=== PATIENT | male | born 1975 | race Caucasian/White ===

== ENCOUNTER → 2019-01-20 10:52 | Outpatient (CLI) | payer OTHER, SELFPAY ==
[2019-01-20 11:02] LABS: Bacteria 0 SEEN /hpf (None Seen); Mucous, Urine 0 SEEN /hpf (<or=2+); Red Blood Cells-Urine 0 SEEN /hpf (0-5); Squamous Epithelial Cells - UA 0 SEEN /hpf (0-5); White Blood Cells 0 SEEN /hpf (0-5)
[2019-01-20 12:35] LABS: Color, Urine Yellow (Yellow); Glucose, Dipstick Normal (Normal); Ketone-Dipstick Negative (Negative); Leukocyte Esterase-Dipstick Negative /ul (Negative); Nitrite-Dipstick Negative (Negative); Occult Blood-Urine Negative /ul (Negative); Protein-Dipstick Negative (Negative); Urine Bilirubin Dipstick Negative (Negative); Urine Clarity Clear (Clear); Urine Urobilinogen Normal (Normal)
[2019-01-20 12:39] LABS: Absolute Lymphocyte Count 2.02 X10^3/ul (0.83-4.51); Absolute Neutrophil Count 3.8 X10^3/uL (2.0-7.7); Basophil# 0.07 X10^3/uL; Basophil% 1.1 % (0-1); Eosinophil# 0.14 X10^3/uL; Eosinophils% 2.1 % (0-5); Hematocrit 47.1 % (40-54); Hemoglobin 16.7 g/dl (13.0-16.5); Lymphocyte # 2.02 X10^3/ul (4.0); Lymphocyte % 30.8 % (19-41); Mean Corp Hgb Conc 35.5 g/gl (32-36); Mean Corpuscular Hgb 30.2 pg (27.0-32.0); Mean Corpuscular Volume 85.2 fL (80-94); Mean Platelet Vol. 9.5 fl (6.2-12.0); Monocyte# 0.56 X10^3/uL; Monocyte% 8.5 % (0-10); Neutrophil # 3.75 X10^3/uL (2.7-7.7); Neutrophil % 57.3 % (47-70); Platelet Count 333 K/mm3 (150-450); RBC Distribution Width CV 12.6 % (11.6-14.6); RBC Distribution Width SD 38.9 fl (35.1-43.9); Red Blood Count 5.53 M/mm3 (4.6-6.2); White Blood Count 6.6 K/mm3 (4.4-11.0)
[2019-01-20 12:48] LABS: POSITIVE COUNT NO; POSITIVE DIFFERENTIAL NO; POSITIVE MORPHOLOGY NO
[2019-01-20 13:25] LABS: ALB/GLOB Ratio 1.1 RATIO (0.9-2.4); AST(SGOT) 25 U/L (15-37); Alanine Aminotransfer ALT/SGPT 42 U/L (16-61); Albumin, Serum 3.8 g/dL (3.2-5.0); Alkaline Phosphatase 73 U/L (45-117); Anion Gap 12 (5-15); BUN 19 mg/dL (7-18); BUN/Creat Ratio 18.3 RATIO (10-20); Calcium,Total 8.7 mg/dL (8.5-10.1); Chloride 105 mmol/L (98-107); Cholesterol 260 mg/dL (200); Creatinine, Serum 1.04 mg/dL (0.70-1.30); EST Glomerular Filtration Rate 84 mL/min (>60); Est Glom Filt Rate - Afr Amer 101 mL/min (>60); Globulin 3.4 g/dL (2.2-4.2); Glucose 86 mg/dL (74-106); High Density Lipoprotein 42 mg/dL; Potassium 4.4 mmol/L (3.5-5.1); Protein, Total 7.2 g/dL (6.4-8.2); Sodium Level 140 mmol/L (136-145); Thyroid Stim Hormone (TSH) 2.34 uIU/mL (0.358-3.74); Triglycerides 128 mg/dL; Very Low Density Lipoprotein 26 mg/dL (5-40)
== END ==
DX: Z00.00 Encounter for general adult medical examination without abnormal findings (principal); E78.49 Other hyperlipidemia; R53.83 Other fatigue
CPT/HCPCS: 36415; 80053; 80061; 81001; 84443; 85025

== ENCOUNTER → 2019-05-14 12:06 | Outpatient (CLI) | payer OTHER, SELFPAY ==
[2019-05-14 14:21] LABS: ALB/GLOB Ratio 1.2 RATIO (0.9-2.4); AST(SGOT) 28 U/L (15-37); Alanine Aminotransfer ALT/SGPT 51 U/L (16-61); Albumin, Serum 4.2 g/dL (3.2-5.0); Alkaline Phosphatase 77 U/L (45-117); Anion Gap 9 (5-15); BUN 15 mg/dL (7-18); BUN/Creat Ratio 13.8 RATIO (10-20); Calcium,Total 8.8 mg/dL (8.5-10.1); Chloride 105 mmol/L (98-107); Cholesterol 175 mg/dL (200); Creatinine, Serum 1.09 mg/dL (0.70-1.30); EST Glomerular Filtration Rate 79 mL/min (>60); Est Glom Filt Rate - Afr Amer 96 mL/min (>60); Globulin 3.5 g/dL (2.2-4.2); Glucose 89 mg/dL (74-106); High Density Lipoprotein 45 mg/dL; Potassium 4.3 mmol/L (3.5-5.1); Protein, Total 7.7 g/dL (6.4-8.2); Sodium Level 140 mmol/L (136-145); Triglycerides 140 mg/dL; Very Low Density Lipoprotein 28 mg/dL (5-40)
== END ==
DX: E78.49 Other hyperlipidemia (principal)
CPT/HCPCS: 36415; 80053; 80061

== ENCOUNTER 2020-08-25 09:00 | Outpatient (RCR) | payer SELFPAY | END 2020-08-25 23:59 | LOC: IMMUN 09:00 | PROVIDERS: Visit Provider Family Medicine | DX: Z23 Encounter for immunization (principal) | CPT/HCPCS: 0011A; 0012A ==

== ENCOUNTER → 2020-11-12 | Outpatient (CLI) | payer OTHER, SELFPAY ==
[2020-11-12 17:49] LABS: Hematocrit 50.5 % (40-54); Hemoglobin 16.2 g/dL (13.0-16.5); Mean Corp Hgb Conc 32.1 g/dL (32-36); Mean Corpuscular Hgb 29.7 pg (27.0-32.0); Mean Corpuscular Volume 92.5 fL (80-94); Mean Platelet Vol. 9.4 fl (6.2-12.0); Platelet Count 312 K/mm3 (150-450); RBC Distribution Width CV 12.7 % (11.6-14.6); RBC Distribution Width SD 43.2 fl (35.1-43.9); Red Blood Count 5.46 M/mm3 (4.6-6.2)
[2020-11-12 18:27] LABS: ALB/GLOB Ratio 1.3 RATIO (0.9-2.4); AST(SGOT) 25 U/L (15-37); Alanine Aminotransfer ALT/SGPT 41 U/L (16-61); Alkaline Phosphatase 83 U/L (45-117); Anion Gap 9 (5-15); BUN 18 mg/dL (7-18); BUN/Creat Ratio 14.5 RATIO (10-20); Calcium,Total 8.9 mg/dL (8.5-10.1); Chloride 103 mmol/L (98-107); Cholesterol 155 mg/dL (200); Creatinine, Serum 1.24 mg/dL (0.70-1.30); EST Glomerular Filtration Rate 68 mL/min (>60); Est Glom Filt Rate - Afr Amer 82 mL/min (>60); Glucose 86 mg/dL (74-106); High Density Lipoprotein 40 mg/dL; Potassium 4.6 mmol/L (3.5-5.1); Sodium Level 136 mmol/L (136-145); Thyroid Stim Hormone (TSH) 2.32 uIU/mL (0.358-3.74); Triglycerides 161 mg/dL; Very Low Density Lipoprotein 32 mg/dL (5-40)
== END | disposition home or self-care (01) ==
PROVIDERS: Referring Provider Family Medicine; Visit Provider Family Medicine
DX: Z00.00 Encounter for general adult medical examination without abnormal findings (principal); E78.49 Other hyperlipidemia
CPT/HCPCS: 36415; 80053; 80061; 84443; 85027

== ENCOUNTER → 2021-05-11 | Outpatient (CLI) | payer OTHER, SELFPAY | END | disposition home or self-care (01) | LOC: LABSPEC 13:33 | PROVIDERS: PCP Family Medicine; Referring Provider Family Medicine; Visit Provider Family Medicine | DX: Z20.822 Contact with and (suspected) exposure to COVID-19 (principal) | CPT/HCPCS: 87635; U0005; U0003 ==

== ENCOUNTER → 2021-06-28 08:18 | Outpatient (CLI) | payer OTHER, SELFPAY ==
[2021-06-28 10:12] LABS: AST(SGOT) 30 U/L (15-37); Alanine Aminotransfer ALT/SGPT 43 U/L (16-61); Albumin, Serum 3.7 g/dL (3.2-5.0); Alkaline Phosphatase 86 U/L (45-117); Anion Gap 6 (5-15); BUN 18 mg/dL (7-18); BUN/Creat Ratio 15.4 RATIO (10-20); Calcium,Total 8.6 mg/dL (8.5-10.1); Chloride 104 mmol/L (98-107); Creatinine, Serum 1.17 mg/dL (0.70-1.30); EST Glomerular Filtration Rate 72 mL/min (>60); Est Glom Filt Rate - Afr Amer 87 mL/min (>60); Globulin 3.7 g/dL (2.2-4.2); Glucose 98 mg/dL (74-106); Lipase 111 U/L (73-393); Potassium 3.9 mmol/L (3.5-5.1); Protein, Total 7.4 g/dL (6.4-8.2); Sodium Level 135 mmol/L (136-145)
[2021-06-29 08:43] LABS: Hematocrit 46.5 % (40-54); Hemoglobin 16.1 g/dL (13.0-16.5); Mean Corp Hgb Conc 34.6 g/dL (32-36); Mean Corpuscular Hgb 30.6 pg (27.0-32.0); Mean Corpuscular Volume 88.4 fL (80-94); Mean Platelet Vol. 9.8 fl (6.2-12.0); Platelet Count 281 K/mm3 (150-450); RBC Distribution Width CV 12.3 % (11.6-14.6); RBC Distribution Width SD 40.1 fl (35.1-43.9); Red Blood Count 5.26 M/mm3 (4.6-6.2); White Blood Count 5.9 K/mm3 (4.4-11.0)
[2021-06-29 08:48] LABS: Cholesterol 155 mg/dL (200); High Density Lipoprotein 42 mg/dL; Triglycerides 117 mg/dL; Very Low Density Lipoprotein 23 mg/dL (5-40)
== END ==
PROVIDERS: PCP Physician Assistant; Referring Provider Physician Assistant; Visit Provider Physician Assistant
DX: Z00.00 Encounter for general adult medical examination without abnormal findings (principal); R53.83 Other fatigue; E55.9 Vitamin D deficiency, unspecified; K21.9 Gastro-esophageal reflux disease without esophagitis; R10.9 Unspecified abdominal pain
CPT/HCPCS: 36415; 80053; 80061; 82306; 83690; 84443; 85027

== ENCOUNTER 2021-07-04 05:33 | Day surgery (SDC) | payer OTHER, SELFPAY ==
[2021-07-04] VITALS (9 sets, daily range): BP systolic 102–134; BP diastolic 57–78; PULSE 66–75; RESP 16–18; TEMP 36.4–36.9; O2SAT 94–100; BMI 35.9
--- NOTE | 2021-07-04 | EGD_PTH ---
PATIENT: AUDELIA ANGEL LOC: EN U#:[id number] AGE/SX: 45/M ROOM: RE07/04/[address]: Dr. Herbert Chun MD : 1975 BED: DIS: 07/04/2021 SPEC #: [id number] RECD: 07/04/21 10:38 STATUS: LOS NELSON #: [id number] DHRUV: 07/04/21 00:[address]: Herbert Chun DEPT: SURGICAL PATHOLOGY RECD BY: Fuad Stockton ENTERED: 07/04/21 10:38 SP TYPE: EGD BIOPSY OT DR: Radha Delgado PA-C Tissues: A - Duodenum, NOS B - Gastric mucous membrane C - Esophageal mucous membrane D - Esophageal mucous membrane Procedures: Special Stain Group II Surgery Specimen Level IV Alcian Blue/PAS (control) HEADER OPERATION: EGD PRE-OP DIAGNOSIS: Acid reflux, epigastric abdominal pain TISSUE SUBMITTED: A. Duodenum biopsy, B. Antrum biopsy for H. pylori and path, C. Distal esophagus biopsy, D. Mid esophagus biopsy MICROSCOPIC DIAGNOSIS A. Duodenum, biopsy: A fragment of duodenal mucosa, no pathologic diagnosis. B. Antrum, biopsy: Mild gastritis. See microscopic description and comment. C. Distal esophagus, biopsy: Fragments of gastroesophageal mucosa with moderate chronic inflammation. Intestinal metaplasia (goblet cell metaplasia) not identified. See comment. D. Mid esophagus, biopsy: A fragment of squamous epithelium, no pathologic diagnosis. SJ:elfego 07/05/2021 COMMENT B. The results of immunohistochemistry for Helicobacter pylori will be reported separately ([id number]). C. Alcian blue/PAS stain with matched control is used in the evaluation of the specimen. MICROSCOPIC DESCRIPTION Slides are reviewed. B. The specimen shows fragments of gastric mucosa with chronic inflammatory cell infiltrates in the lamina propria consisting of lymphocytes and plasma cells, consistent with mild chronic gastritis. Mild mucosal congestion is also noted. GROSS DESCRIPTION A - Received in fixative is one container labeled with the patient's name and designated duodenum biopsy. The specimen consists of one irregular fragment of light becerra soft tissue that measures 0.3 x 0.3 x 0.1 cm. The specimen is totally submitted in one cassette. B - Received in fixative is one container labeled with the patient's name and designated antrum biopsy. The specimen consists of one irregular fragment of light becerra soft tissue that measures 0.3 x 0.3 x 0.1 cm. The specimen is totally submitted in one cassette. C - Received in fixative is one container labeled with the patient's name and designated distal esophagus biopsy. The specimen consists of multiple irregular fragments of light becerra soft tissue that in aggregate measure 2 x 0.3 x 0.1 cm. The specimen is totally submitted in one cassette. D - Received in fixative is one container labeled with the patient's name and designated mid esophagus biopsy. The specimen consists of one irregular fragment of light becerra soft tissue that measures 0.6 x 0.2 x 0.1 cm. The specimen is totally submitted in one cassette. /SJ:rg 07/04/21 TC:3 CPT: 75624 x4, 10774
--- NOTE | 2021-07-04 | IMM_PTH ---
PATIENT: AUDELIA ANGEL LOC: EN U#:[id number] AGE/SX: 45/M ROOM: RE07/04/[address]: Dr. Herbert Chun MD : 1975 BED: DIS: 07/04/2021 SPEC #: [id number] RECD: 07/04/21 11:51 STATUS: LOS NELSON #: [id number] DHRUV: 07/04/21 00:[address]: Herbert Chun DEPT: IMMUNOHISTOCHEMISTRY RECD BY: Barry Hernandes ENTERED: 07/04/21 11:51 SP TYPE: IMMUNO OTHR DR: Radha Delgado PA-C Tissues: Gastric mucous membrane Procedures: H Pylori (initial) PHYSICIAN & INSTITUTION [place] [id number] SPECIMEN INFORMATION: Tissue Source: B - Antrum biopsy Clinical Info: Acid reflux, epigastric abdominal pain Specimen Number: [id number] CPT code: 93370 METHODOLOGY: Deparaffinized sections of prefer/formalin-fixed tissue or PAP/DQ stained slides are incubated with monoclonal/polyclonal antibodies/oligonucleotide probes. Localization is made via biotin free immunoperoxidase method. Appropriate controls are performed and reacted as expected. Results on target cell population are indicated in the following table: RESULTS: ANTIBODY / CLONE RESULT Block B H Pylori (polyclonal) negative These tests were developed and their performance characteristics determined by [facility]. They may not have been cleared or approved by the U.S. Food and Drug Administration. The FDA has determined that such clearance or approval is not necessary. INTERPRETATION: B. Antrum, biopsy: Negative for Helicobacter pylori organisms. SJ:elfego 07/05/2021
--- NOTE | 2021-07-04 06:03 | HP.PCM_ITS ---
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 Is patient in pain?: No Allergies No Known Allergies Allergy (Unverified 06/27/21 14:56) Medications omeprazole 40 mg capsule,delayed release 40 mg PO DAILY 06/27/21 [History Confirmed 06/27/21] oxygen-air delivery systems #1 06/27/21 [History Confirmed 06/27/21] rosuvastatin 20 mg tablet tablet PO 06/27/21 [History Confirmed 06/27/21] [facility] Medical History Acid reflux High cholesterol Family History Mother CAD (coronary artery disease) Social History Smoking Status: Never smoker alcohol intake: current alcohol intake frequency: a few times a month HPI HPI HPI: AUDELIA ANGEL, is a 45 M who presents to the office today for surgical consultation regarding gastroesophageal reflux disease. The patient is referred by Dr.Nino Gonzales, [place], [place]. Intermittent compromise surgical consult recommendations will return to him. Despite omeprazole therapy the patient is having increased reflux symptomatology. He is currently on omeprazole 40 mg daily. There is some associated epigastric pain as well.. Despite this the patient is complaining of his persistent gnawing pain in the epigastrium. Food may slightly improve it. There is no particular food that aggravates it. He denies bright red blood per rectum or melena. No fever or chills or sweats. He otherwise enjoys good health. He has never had a cardiac stress test however he does routine exercise on the [employer]. In the past he has had problems with more reflux type issues and heartburn. That is a lesser component currently. ROS General General: No weight change, appetite, fatigue, colon cancer, breast cancer or weakness HEENT HEENT: No difficulty swallowing, eye injury, eye surgery, swollen glands or hoarseness Endo Endocrine: No thyroid disease, diabetes mellitus, thyroid cancer, Hair loss, heat intolerance or cold intolerance Skin Skin: No rash or changing moles Breast Breast: No left breast lump, right breast lump, nipple discharge, breast pain, abnormal mammogram, abnormal US or breast enlargement [facility] Musculoskeletal: No back problems, arthritis, rheumatoid arthritis, gout or joint pain Cardio Cardiovascular: No murmur, pacemaker, heart disease, atrial fibrillation, high blood pressure, heart attack, heart stent, palpitations, shortness of breat with exertion or chest pain Psych Psychiatric: No depression, anxiety or hearing voices Resp Respiratory: No shortness of breath, No sleep apnea, No cough, No COPD, No asthma, No emphysema and No wheezing Gastro Gastrointestinal: Yes abdominal pain, No nausea or vomiting, No diarrhea, No constipation, No blood in stool, Yes acid reflux, No hemorrhoids, No ulcers, No gallbladder problem and No black,tarry stools Marco A Hematologic: No blood thinners, No blood disorders, No bleeding, No anemia and No blood clots Neuro Neurologic: No system reviewed and no additional complaints, except as documented, No as per HPI, No abnormal gait, No abnormal hearing, No abnormal movements, No abnormal speech, No behavioral changes, No burning sensations, No confusion, No convulsions, No disequilibrium, No dizziness, No localized weakness, No frequent falls, No headache(s), No lack of coordination, No loss of vision, No memory loss, No numbness, No other visual disturbances, No radicular pain, No restless legs, No sensory deficit, No syncope, No tingling, No tremor(s), No weakness and No other Exam Const General: cooperative, healthy appearing, comfortable and no acute distress Nutritional Appearance: overweight Orientation: alert and awake [facility] Head: normal to inspection Eyes General: appearance normal, both eyes and all related structures Resp Effort & Inspection: normal respiratory effort Auscultation: clear to auscultation bilaterally Cardio Rate: regular rate Rhythm: regular rhythm GI Palpation: soft Other: Slightly tender in the epigastrium without mass or guarding or rebound, nontender in the right upper quadrant except a very deep palpation mild discomfort. [facility] Cervical Spine: normal cervical lordosis Neuro General: patient alert, patient awake and patient oriented x3 Extrem General: no calf tenderness Psych Appearance: grossly normal Assessment and Plan Assessment and Plan (1) Acid reflux: Status: Acute (2) Epigastric abdominal pain: Status: Acute Orders: Orders: Comprehensive Metabolic Profil Today K21.9 Lipase Today K21.9 Plan - Dr. Herbert Chun MD: Epigastric abdominal pain not resolved with omeprazole 40 mg daily. Past history of reflux symptoms but that is a lesser component. Constant gnawing discomfort. No food intolerance. Etiology at this point is not clear. I recommend a complete metabolic profile with a lipase. I recommend a esophagogastroduodenoscopy with very careful inspection and biopsy if indicated. Pending the results of that blood work and investigation if there are no findings that would correlate with the patient's symptomatology then I would recommend a right upper quadrant ultrasound and pending that result a hepatobiliary scan as well. He has had an opportunity to ask and have questions answered. He concurs with th e recommendations would like to proceed as noted. I appreciate the opportunity of assisting with the surgical care. Copy: Dr.Rubino Herbert Chun M.D., F.A.C.S. I have re-examined the patient. There are no clinical changes since date of exam.
[2021-07-04] MEDS: Lactated Ringers 1,000 ML 15 ML IV (06:04)
[2021-07-04] MEDS: Midazolam 5 MG/ML Syringe (06:30)
--- NOTE | 2021-07-04 06:53 | OP.CCLET_ITS ---
07/04/2021 Terrence Sexton Md Re : Upper GI endoscopy procedure for Ramírez Burnham Dear Carlie This procedure was performed on Sunday, July 04, 2021. My impressions and recommendations are as follows: Impressions : - Normal middle third of esophagus. Biopsied. - LA Grade A reflux esophagitis. Rule out Dietrich's esophagus. Biopsied. - 1 cm hiatal hernia. - Erythematous mucosa in the antrum. Biopsied. - Normal examined duodenum. Biopsied. Recommendations : - Discharge patient to home. - Resume previous diet. - Continue present medications. - Telephone my office for pathology results in 1 week. My findings are described in the full procedure note, which is enclosed. If I can be of further assistance, please feel free to contact me at Doctor phone number(s): Work: . Sincerely, Herbert Chun MD 07/04/2021 6:52:22 AM This report has been signed electronically.
--- NOTE | 2021-07-04 06:53 | OP.EGD_ITS ---
Patient Name: Ramírez Burnham Procedure Date: 07/04/2021 6:14 AM Date of : 1975 Age: 45 Procedure: Upper GI endoscopy Indications: Suspected esophageal reflux Providers: Herbert Chun MD Referring MD: ILA Perea Medicines: Midazolam 4 mg IV, Meperidine 100 mg IV Complications: No immediate complications. Procedure: Pre-Anesthesia Assessment: - Prior to the procedure, a History and Physical was performed, and patient medications and allergies were reviewed. The patient's tolerance of previous anesthesia was also reviewed. The risks and benefits of the procedure and the sedation options and risks were discussed with the patient. All questions were answered, and informed consent was obtained. Prior Anticoagulants: The patient has taken no previous anticoagulant or antiplatelet agents. ASA Grade Assessment: II - A patient with mild systemic disease. After reviewing the risks and benefits, the patient was deemed in satisfactory condition to undergo the procedure. After obtaining informed consent, the endoscope was passed under direct vision. Throughout the procedure, the patient's blood pressure, pulse, and oxygen saturations were monitored continuously. The gastroscope was introduced through the mouth, and advanced to the second part of duodenum. The upper GI endoscopy was accomplished without difficulty. The patient tolerated the procedure well. Moderate Sedation: Moderate (conscious) sedation was personally administered by the endoscopist. The following parameters were monitored: oxygen saturation, heart rate, blood pressure, and response to care. Total physician intraservice time was 15 minutes. Scope In: 6:33:54 AM Scope Out: 6:41:34 AM Total Procedure Duration Time 0 hours 7 minutes 40 seconds Findings: The middle third of the esophagus was normal. Biopsies were taken with a cold forceps for histology. LA Grade A (one or more mucosal breaks less than 5 mm, not extending between tops of 2 mucosal folds) esophagitis with no bleeding was found 40 cm from the incisors. Biopsies were taken with a cold forceps for histology. A 1 cm hiatal hernia was present. Diffuse mildly erythematous mucosa without bleeding was found in the gastric antrum. Biopsies were taken with a cold forceps for histology. The examined duodenum was normal. Biopsies were taken with a cold forceps for histology. Impression: - Normal middle third of esophagus. Biopsied. - LA Grade A reflux esophagitis. Rule out Dietrich's esophagus. Biopsied. - 1 cm hiatal hernia. - Erythematous mucosa in the antrum. Biopsied. - Normal examined duodenum. Biopsied. Recommendation: - Discharge patient to home. - Resume previous diet. - Continue present medications. - Telephone my office for pathology results in 1 week. Procedure Code(s): --- Professional --- 61101, Esophagogastroduodenoscopy, flexible, transoral; with biopsy, single or multiple 76773, 59, Moderate sedation services provided by the same physician or other qualified health career guidance technician performing the diagnostic or therapeutic service that the sedation supports, requiring the presence of an independent trained observer to assist in the monitoring of the patient's level of consciousness and physiological status; initial 15 minutes of intraservice time, patient age 5 years or older Diagnosis Code(s): --- Professional --- K21.0, Gastro-esophageal reflux disease with esophagitis K44.9, Diaphragmatic hernia without obstruction or gangrene K31.89, Other diseases of stomach and duodenum CPT copyright 2017 [employer]. All rights reserved. The codes documented in this report are preliminary and upon soil conservation teacher review may be revised to meet current compliance requirements. Herbert Chun MD 07/04/2021 6:52:22 AM This report has been signed electronically. Number of Addenda: 0 Note Initiated On: 07/04/2021 6:14 AM
== END 2021-07-04 08:27 | disposition home or self-care (01) ==
LOC: EN 05:34 → AC 05:35
PROVIDERS: PCP Physician Assistant; Referring Provider Physician Assistant; Visit Provider Surgery
PROC: (CPT 43239; principal; 2021-07-04 06:25)
DX: K29.70 Gastritis, unspecified, without bleeding (principal); K21.00 Gastro-esophageal reflux disease with esophagitis, without bleeding; K44.9 Diaphragmatic hernia without obstruction or gangrene; E78.00 Pure hypercholesterolemia, unspecified; Z79.899 Other long term (current) drug therapy
CPT/HCPCS: 43239; 88305; 88313; 88342; 99152; 99153; J7120

== ENCOUNTER → 2021-07-16 07:41 | Outpatient (CLI) | payer OTHER, SELFPAY ==
--- NOTE | 2021-07-16 07:48 | US_ITS ---
STUDY: ABDOMINAL ULTRASOUND - RIGHT UPPER QUADRANT REASON FOR VISIT: Male, 45 years old, right upper quadrant pain. TECHNIQUE: Ultrasound evaluation of the right upper quadrant was performed with real-time and static swenson-scale imaging. TECHNICAL QUALITY: Adequate. COMPARISON: None. FINDINGS: Liver: The liver measures 18.1 cm. There is increased echogenicity consistent with fatty infiltration. The bile ducts are within normal limits. There is hepatic color flow. The direction of portal flow is hepatopetal. There is no demonstrated mass lesion. Gallbladder: Normal distended gallbladder. The gallbladder wall measures 2.1 mm. There is a negative sonographic Wilson''s sign. There is no pericholecystic fluid. There are no gallstones. Common Bile Duct (C.B.D.): The common bile duct measures 3.1 mm. Pancreas: The pancreas is somewhat echogenic. There is no demonstrated definite pancreatic mass or cyst. Right Kidney: Normal size of the right kidney. The right kidney measures 11.4 cm. Normal renal cortex. The right cortex measures 1.2 cm. There is no demonstrated renal mass or cyst. There is no right hydronephrosis. US/Gallbladder IMPRESSION: 1. Mild hepatomegaly. 2. Increased liver echogenicity which may reflect fatty infiltration. 3. No evidence of gallstones. Electronically Signed: Óscar Hanson, at 9:44 EST Tel , Service support ,
== END ==
PROVIDERS: PCP Family Medicine; Visit Provider Surgery
DX: R10.13 Epigastric pain (principal)
CPT/HCPCS: 76705

== ENCOUNTER → 2021-07-22 09:51 | Outpatient (CLI) | payer OTHER, SELFPAY ==
--- NOTE | 2021-07-22 09:57 | NM_ITS ---
CLINICAL: 45-year-old male with reported history of abdominal pain. RADIONUCLIDE HEPATOBILIARY SCINTIGRAPHY COMPARISON: Abdominal ultrasound report 07/16/2021 FINDINGS: Following the intravenous administration of 4.9 mCi of 99m Tc Mebrofenin, hepatobiliary images reveal: 1. Relatively prompt and homogeneous radiopharmaceutical concentration is noted by a normal sized liver. No parenchymal defects are identified. 2. Gallbladder activity is identified at 10 minutes post radiopharmaceutical administration. 3. Small intestinal tract is observed at 45 minutes following tracer injection. 4. Washout of the radiopharmaceutical by the hepatic parenchyma appears qualitatively normal. The patient was administered a fatty meal (8 ounces BOOST-26 grams fat). The post fatty meal consumption gallbladder ejection fraction calculated at 29 minutes was noted to be 52.0 % (normal greater than 30%). NC/Hepatobilliary Img w/Pharm Int IMPRESSION: 1. NORMAL 99m Tc Mebrofenin hepatobiliary imaging examination with fatty meal ingestion. A. A gallbladder ejection fraction calculated to be greater than 30% following the administration of a consumed fatty meal makes the probability of functional hepatobiliary disease (gallbladder and/or sphincter of Oddi dyskinesia) and/or organic hepatobiliary disease (chronic acalculous cholecystitis and/or cystic duct syndrome) to be low. (Carmen and Arsenio, J Nucl Med 43: 1603, 2002). Electronically Signed: Russ Angel DO at 7:57 EST Tel , Service support ,
== END ==
PROVIDERS: PCP Family Medicine; Referring Provider Surgery; Visit Provider Surgery
DX: R10.13 Epigastric pain (principal)
CPT/HCPCS: 78227; A9537

== ENCOUNTER 2022-05-01 20:04 | Emergency (ER) | payer OTHER, SELFPAY ==
[2022-05-01 20:05] VITALS: BP 152/92; PULSE 102; RESP 20; TEMP 36.9; O2SAT 98; BMI 35.1
--- NOTE | 2022-05-01 20:21 | EKG12_ITS ---
Test Reason : CP Blood Pressure : / mmHG Vent. Rate : 090 BPM Atrial Rate : 090 BPM P-R Int : 138 ms QRS Dur : 100 ms QT Int : 374 ms P-R-T Axes : 060 -36 062 degrees QTc Int : 457 ms Normal sinus rhythm Left axis deviation Low voltage QRS (Limb Leads) Poor R wave progression Abnormal ECG Confirmed by CONSTANTIN MULLINS, GARY ([id number]), scientific editor TROY SHRESTHA ([id number]) on 05/02/2022 1:18:19 PM Referred By: GO Confirmed By:GARY KILLIAN MD
--- NOTE | 2022-05-01 20:22 | ED.VIS.CHEST ---
HPI History of Present Illness Chief Complaint: Chest Pain Narrative Narrative: Patient's was recently diagnosed with COVID, he developed some chest pain retrosternal today. He has no radiation to arms or legs, he has no pleuritic component. No lower extremity edema or calf pain. No recent fevers chills cough or shortness of breath. [facility] Medical History (Updated 05/01/22 @ 22:[address] Pavel Keyes MD) Acid reflux High cholesterol Obstructive sleep apnea Home Medications omeprazole 40 mg capsule,delayed release 40 mg PO DAILY 06/27/21 [History Last Taken Unknown] oxygen-air delivery systems ##1 06/27/21 [History Last Taken Unknown] rosuvastatin 20 mg tablet (Crestor) 1 tablet PO DAILY 06/27/21 [History Last Taken Unknown] Allergy/AdvReac Type Severity Reaction Status Date / Time No Known Allergies Allergy Unverified 05/01/22 20:08 Family History Mother CAD (coronary artery disease) Social History Smoking Status: Never smoker alcohol intake: current alcohol intake frequency: a few times a month ROS ROS ED ROS Narrative Past medical history: Reviewed, hypercholesterolemia. Medications: Reviewed Social history: Noncontributory Review of systems: All systems negative except as indicated General: No fever Eyes: No visual changes ENT: No upper airway congestion, normal voice Neck: No neck pain Cardiovascular: Chest pain as in HPI Respiratory: No shortness of breath or cough Gastrointestinal: No abdominal pain, nausea vomiting or diarrhea Genitourinary: No dysuria Musculoskeletal: Denies myalgias no difficulty with ambulation Skin: No rash Neurological: No memory loss, confusion or any focal weakness Psych: No recent behavioral changes Hematologic: No easy bleeding or easy bruising EXAM Physical Exam Narrative Exam Narrative: Physical exam General: Well nourished, Well developed, No Acute Distress Head: Normocephalic, Atraumatic Eyes: Conjunctiva not pale ENT: Moist mucous membranes Neck: Supple, Nontender, No lymphadenopathy Cardiovascular: Regular rate, Regular rhythm Respiratory: No distress, CTA bilaterally Abdomen: Soft, Nontender, Nondistended Back: Nontender, Normal Inspection. Negative for: CVA tenderness Extremities: Nontender, No edema Skin: Normal color, No rash Neurological: Alert, Normal Strength, Normal Sensation Psychological: Normal affect Const Vital Signs: 05/01/22 20:05 05/01/22 20:21 05/01/22 22:04 Temperature 98.4 F Temperature Source Temporal Pulse Rate 102 H 76 Respiratory Rate 20 H 18 Blood Pressure 152/92 H 128/72 H Blood Pressure Mean 112 90 Pulse Ox 98 97 Oxygen Delivery Method Room Air Room Air Room Air 05/01/22 21:04 Temperature Temperature Source Pulse Rate 68 Respiratory Rate Blood Pressure Blood Pressure Mean Pulse Ox 99 Oxygen Delivery Method [facility] MDM Lab Data Labs: Laboratory Results - last 24 hr 05/01/22 05/01/22 21:06 21:06 WBC 8.6 RBC 5.32 Hgb 16.1 Hct 46.1 MCV 86.7 MCH 30.3 MCHC 34.9 RDW Std Deviation 38.1 RDW Coeff of Rafal 12.0 Plt Count 278 MPV 8.8 Immature Gran % (Auto) 0.400 Neut % (Auto) 83.6 H Lymph % (Auto) 10.7 L [place] % (Auto) 4.9 Eos % (Auto) 0.0 Baso % (Auto) 0.4 Absolute Neuts (auto) 7.2 Absolute Lymphs (auto) 0.92 Nucleated RBC % 0 Sodium 137 Potassium 4.0 Chloride 105 Carbon Dioxide 22.0 Anion Gap 10 BUN 16 Creatinine 1.24 Estim Creat Clear Calc 73.55 Est GFR (MDRD) Af Amer 81 Est GFR (MDRD) Non-Af 67 BUN/Creatinine Ratio 12.9 Glucose 126 H Calcium 8.7 Troponin I High Sens < 3 L Radiography Diagnostic Testing: Clinical Impression(s) from Imaging Studies Chest X-Ray 05/01/22 20:49 IMPRESSION: No radiographic evidence of acute cardiopulmonary disease. Electronically Signed: Pako Lala MD at 22:28 EDT , Chest x-ray read by me is normal. EKG Initial EKG: Comments: Sinus rhythm with a rate of 90. Normal MS and QTc intervals. No ischemic changes. Interpreted by emergency Dr. Treatment and Re-Evaluation Narrative: I am not worried about thromboembolic disease, patient has normal heart rate he has no pleuritic component or lower extremity eczema. He appears well. He is work-up is unremarkable with a normal troponin and has been ruled out. I will discharge with reassurance. Discharge Plan Triage Chief Complaint: Chest Pain ED Provider: Pavel Keyes Dx/Rx/DC Orders Clinical Impression: Chest pain, COVID Instructions: ED Chest Pain, Uncertain Cause Prescriptions: No Action rosuvastatin [Crestor] 20 mg tablet 1 tablet PO DAILY omeprazole 40 mg capsule,delayed release(DR/EC) 40 mg PO DAILY (DME) oxygen-air delivery systems Device See Rx Instructions .ROUTE .MEDSULY Qty: 1 Rx Instructions: As directed Primary Care Provider: Grzegorz Gonzales Referrals: Grzegorz Gonzales MD [Primary Care Provider] - 3-5 Days Disposition Disposition: Home, Self Care
[2022-05-01] MEDS: Aspirin 81 MG TAB.CHEW 324 MG PO (20:34)
--- NOTE | 2022-05-01 20:49 | RAD_ITS ---
INDICATION: chest pain EXAMINATION/TECHNIQUE: X-RAY - XR Chest 1 View COMPARISON: None. FINDINGS: LINES/DEVICES: None. LUNGS: No pulmonary edema or focal airspace consolidation. Left basilar retrocardiac pulmonary vessels, not to be confused with airspace disease. No sizable pleural effusion. No pneumothorax detected. MEDIASTINUM AND CARDIOVASCULAR STRUCTURES: Heart size within normal limits. Mediastinal contours unremarkable. BONES AND SOFT TISSUES: No acute findings. RAD/Chest 1 View (Portable) IMPRESSION: No radiographic evidence of acute cardiopulmonary disease. Electronically Signed: Pako Lala MD at 22:28 EDT ,
[2022-05-01 21:04] VITALS: PULSE 68; O2SAT 99
[2022-05-01 21:13] LABS: Absolute Lymphocyte Count 0.92 X10^3/uL (0.83-4.51); Absolute Neutrophil Count 7.2 X10^3/uL (2.0-7.7); Basophil# 0.03 X10^3/uL; Basophil% 0.4 % (0-1); Hematocrit 46.1 % (40-54); Hemoglobin 16.1 g/dL (13.0-16.5); Lymphocyte # 0.92 X10^3/ul (0.83-4.51); Lymphocyte % 10.7 % (19-41); Mean Corp Hgb Conc 34.9 g/dL (32-36); Mean Corpuscular Hgb 30.3 pg (27.0-32.0); Mean Corpuscular Volume 86.7 fL (80-94); Mean Platelet Vol. 8.8 fl (6.2-12.0); Monocyte# 0.42 X10^3/uL; Monocyte% 4.9 % (0-10); NRBC Flagged by Analyzer 0 % (0-5); Neutrophil # 7.17 X10^3/uL (2.7-7.7); Neutrophil % 83.6 % (47-70); Platelet Count 278 K/mm3 (150-450); RBC Distribution Width SD 38.1 fl (35.1-43.9); Red Blood Count 5.32 M/mm3 (4.6-6.2); White Blood Count 8.6 K/mm3 (4.4-11.0)
[2022-05-01 21:36] LABS: Anion Gap 10 (5-15); BUN 16 mg/dL (7-18); BUN/Creat Ratio 12.9 RATIO (10-20); Calcium,Total 8.7 mg/dL (8.5-10.1); Chloride 105 mmol/L (98-107); Creatinine, Serum 1.24 mg/dL (0.70-1.30); EST Glomerular Filtration Rate 67 mL/min (>60); Est Glom Filt Rate - Afr Amer 81 mL/min (>60); Estimated Creatinine Clearance 73.55 ml/min; Glucose 126 mg/dL (74-106); Sodium Level 137 mmol/L (136-145); Troponin-I HS (w/2H Reflex) < 3 pg/mL (3.0-78.0)
[2022-05-01 22:04] VITALS: BP 128/72; PULSE 76; RESP 18; O2SAT 97
[2022-05-01 23:00] VITALS: BP 117/62; O2SAT 98
[2022-05-01 23:10] LABS: Reflex Troponin-HS? (from REC) Y
[2022-05-01 23:26] LABS: Troponin-I HS < 3 pg/mL (3.0-78.0)
== END 2022-05-01 23:34 | disposition home or self-care (01) ==
PROVIDERS: Emergency Provider Emergency Medicine; PCP Family Medicine; Visit Provider Emergency Medicine
DX: U07.1 COVID-19 (principal); E78.00 Pure hypercholesterolemia, unspecified; K21.9 Gastro-esophageal reflux disease without esophagitis; G47.33 Obstructive sleep apnea (adult) (pediatric)
CPT/HCPCS: 36415; 71045; 80048; 84484; 85025; 93005; 99284; A4216

== ENCOUNTER 2022-05-29 09:39 | Emergency (ER) | payer OTHER, SELFPAY ==
[2022-05-29 09:40] VITALS: BP 131/74; PULSE 130; RESP 14; TEMP 37; O2SAT 95; BMI 34.9
--- NOTE | 2022-05-29 10:00 | EX.ED.GENINJ ---
HPI History of Present Illness Chief Complaint: Laceration Narrative Narrative: 46-year-old male here for finger injury. The patient states he was using a wood heel finisher. He notes he amputated the distal portion of second digit. States he is constant, severe left finger pain that is worse with movement and palpation Old chart reviewed: No recent ED visits or hospitalizations Tetanus Immunization: 5-10 years [facility] Medical History (Updated 05/29/22 @ 11:[address] Alberto Arevalo, DO) Acid reflux Amputated finger High cholesterol Obstructive sleep apnea Home Medications omeprazole 40 mg capsule,delayed release 40 mg PO DAILY 06/27/21 [History Last Taken Unknown] oxygen-air delivery systems ##1 06/27/21 [History Last Taken Unknown] rosuvastatin 20 mg tablet (Crestor) 1 tablet PO DAILY 06/27/21 [History Last Taken Unknown] cephalexin 500 mg capsule 500 mg PO Q6 #40 caps 05/29/22 [Rx Last Taken Unknown] oxycodone 5 mg capsule 5 mg PO Q6H PRN pain 3 days #12 caps 05/29/22 [Rx Last Taken Unknown] Allergy/AdvReac Type Severity Reaction Status Date / Time No Known Allergies Allergy Verified 05/29/22 09:42 Family History Mother CAD (coronary artery disease) Social History Smoking Status: Never smoker alcohol intake: current alcohol intake frequency: a few times a month ROS ROS ED ROS Narrative Constitutional: Denies fever HEENT: Denies sore throat Neck: Denies neck pain Cardiovascular: Denies chest pain, syncope Respiratory: Denies shortness of breath GI: Denies nausea vomiting or abdominal pain : Denies changes in urinary habits Musculoskeletal: Denies muscle or joint pain Neurologic: Denies numbness weakness or loss of sensation Skin denies rash EXAM Physical Exam Narrative Exam Narrative: Nursing triage notes reviewed, Vital signs reviewed Constitutional: please see mdm Extremities: Left second digit with angular amputation of the distal phalanx with nail involvement, bleeding controlled, no obvious exposed bone. Neuro: Intact sensation in radial, median and ulnar nerve distributions. Intact motor function in radial, median ulnar nerve distributions. Skin: Finger amputation as above Const Vital Signs: 05/29/22 09:40 10/24/22 12:11 Temperature 98.6 F Temperature Source Temporal Pulse Rate 130 H 71 Respiratory Rate 14 16 Blood Pressure 131/74 H 122/79 H Blood Pressure Mean 93 Pulse Ox 95 100 Oxygen Delivery Method Room Air MDM MDM MDM Narrative Medical decision making narrative: 46-year-old male here with left second digit amputation. Patient was hemodynamically stable, initially tachycardic. Exam with clean linear amputation of the distal phalanx, bleeding controlled, no obvious exposed bone. Updated the patient's tetanus. Obtained an x-ray gave pain control including digital nerve block. Gave oral antibiotics for infection prophylaxis. Consulted orthopedic surgery. Spoke to Dr. Barclay. Dr. Barclay stated he would prefer the patient to be evaluated by either plastics or hand surgery. Dr. Barclay further stated he will be in the OR till 5:30 PM like patient to follow-up as outpatient with hand specialist. Patient was able to make a call and schedule prompt same-day follow-up for surgical evaluation. Radiography Diagnostic Testing: Clinical Impression(s) from Imaging Studies Finger X-Ray 05/29/22 10:09 IMPRESSION: Amputation of the distal portion of the distal phalanx of the index finger as well as soft tissue amputation. Electronically Signed: Mahesh Reeves MD at 10:43 EDT , Treatment and Re-Evaluation Narrative: Patient was reevaluated heart rate improved patient is prepped for discharge home. Discharge Plan Triage Chief Complaint: Laceration ED Provider: Alberto Arevalo Dx/Rx/DC Orders Clinical Impression: Amputated finger Instructions: ED Finger Tip Amputation Open ... Prescriptions: New oxycodone 5 mg capsule 5 mg PO Q6H PRN (Reason: pain) 3 Days Qty: 12 0RF cephalexin 500 mg capsule 500 mg PO Q6 Qty: 40 0RF No Action rosuvastatin [Crestor] 20 mg tablet 1 tablet PO DAILY omeprazole 40 mg capsule,delayed release(DR/EC) 40 mg PO DAILY (DME) oxygen-air delivery systems Device See Rx Instructions .ROUTE .MEDSUPPLY Qty: 1 Rx Instructions: As directed Primary Care Provider: Grzegorz Gonzales Referrals: Grzegorz Gonzales MD [Primary Care Provider] - Disposition Disposition: Home, Self Care Discharge Date/Time: 05/29/22 12:13
--- NOTE | 2022-05-29 10:09 | RAD_ITS ---
STUDY: X-RAY - LEFT HAND, ATTENTION INDEX FINGER REASON FOR EXAM: Male, 46 years old. Left 2nd digit amputation TECHNIQUE: 3 view(s) of the finger were obtained. COMPARISON: None. FINDINGS: Normal metacarpal head. Normal metacarpophalangeal joint. Normal proximal phalanx. Normal middle phalanx. There has been amputation of the distal portion of the distal phalanx of the index finger as well as the soft tissue amputation. Normal proximal interphalangeal joint. Normal distal interphalangeal joint. RAD/Finger(s) Min 2 Views IMPRESSION: Amputation of the distal portion of the distal phalanx of the index finger as well as soft tissue amputation. Electronically Signed: Mahesh eReves MD at 10:43 EDT ,
[2022-05-29] MEDS: oxyCODONE 5 MG Tablet PO (10:19)
[2022-05-29] MEDS: Cephalexin 250 MG Capsule 500 MG PO (10:19)
[2022-05-29] MEDS: Bupivacaine Mpf 0.5% 30 ML VIAL INFILT (10:20)
[2022-05-29 12:11] VITALS: BP 122/79; PULSE 71; RESP 16; O2SAT 100
== END 2022-05-29 12:13 | disposition home or self-care (01) ==
PROVIDERS: Emergency Provider Emergency Medicine; PCP Family Medicine; Visit Provider Emergency Medicine
DX: S68.121A Partial traumatic metacarpophalangeal amputation of left index finger, initial encounter (principal); W27.8XXA Contact with other nonpowered hand tool, initial encounter; E78.00 Pure hypercholesterolemia, unspecified; G47.33 Obstructive sleep apnea (adult) (pediatric); Z79.899 Other long term (current) drug therapy; Z23 Encounter for immunization
CPT/HCPCS: 73140; 99282

== ENCOUNTER → 2022-11-22 | Outpatient (CLI) | payer OTHER, SELFPAY ==
[2022-11-22 12:27] LABS: Hematocrit 49.7 % (40-54); Hemoglobin 16.6 g/dL (13.0-16.5); Mean Corp Hgb Conc 33.4 g/dL (32-36); Mean Corpuscular Hgb 30.3 pg (27.0-32.0); Mean Corpuscular Volume 90.7 fL (80-94); Mean Platelet Vol. 9.2 fl (6.2-12.0); Platelet Count 313 K/mm3 (150-450); RBC Distribution Width CV 12.1 % (11.6-14.6); RBC Distribution Width SD 39.9 fl (35.1-43.9); Red Blood Count 5.48 M/mm3 (4.6-6.2); White Blood Count 7.7 K/mm3 (4.4-11.0)
[2022-11-22 12:52] LABS: ALB/GLOB Ratio 1.1 RATIO (0.9-2.4); AST(SGOT) 32 U/L (15-37); Alanine Aminotransfer ALT/SGPT 49 U/L (16-61); Alkaline Phosphatase 79 U/L (45-117); Anion Gap 5 (5-15); BUN 16 mg/dL (7-18); BUN/Creat Ratio 14.7 RATIO (10-20); Calcium,Total 8.8 mg/dL (8.5-10.1); Chloride 105 mmol/L (98-107); Cholesterol 162 mg/dL (200); Creatinine, Serum 1.09 mg/dL (0.70-1.30); EST Glomerular Filtration Rate 78 mL/min (>60); Est Glom Filt Rate - Afr Amer 94 mL/min (>60); Globulin 3.5 g/dL (2.2-4.2); Glucose 98 mg/dL (74-106); High Density Lipoprotein 47 mg/dL; Potassium 3.9 mmol/L (3.5-5.1); Protein, Total 7.5 g/dL (6.4-8.2); Sodium Level 135 mmol/L (136-145); Triglycerides 112 mg/dL; Very Low Density Lipoprotein 22 mg/dL (5-40)
== END | disposition home or self-care (01) ==
LOC: MFPLAB 10:18
PROVIDERS: PCP Family Medicine; Visit Provider Family Medicine
DX: Z00.00 Encounter for general adult medical examination without abnormal findings (principal); R53.83 Other fatigue; E78.9 Disorder of lipoprotein metabolism, unspecified
CPT/HCPCS: 36415; 80053; 80061; 81002; 84443; 85027

== ENCOUNTER 2022-12-10 20:18 | Emergency (ER) | payer OTHER, SELFPAY ==
[2022-12-10 20:19] VITALS: BP 139/64; PULSE 91; RESP 29; TEMP 36.7; O2SAT 98; BMI 36.3
[2022-12-10 20:25] VITALS: O2SAT 97
--- NOTE | 2022-12-10 20:25 | EKG12_ITS ---
Test Reason : CP Blood Pressure : / mmHG Vent. Rate : 092 BPM Atrial Rate : 092 BPM P-R Int : 150 ms QRS Dur : 102 ms QT Int : 362 ms P-R-T Axes : 062 -15 064 degrees QTc Int : 447 ms Normal sinus rhythm Normal ECG Confirmed by SHAE MULLINS, AFIA ([id number]), communications editor TROY SHRESTHA ([id number]) on 12/12/2022 8:13:53 AM Referred By: NIURKA Confirmed By:AFIA KAUFMAN MD
--- NOTE | 2022-12-10 20:25 | CT_ITS ---
INDICATION: chest pain EXAMINATION: CTA Chest WO/W Contrast Injection TECHNIQUE: Helically acquired images were obtained of the chest following administration of IV contrast. A radiation dose optimization technique was used for this scan. 3D postprocessing images including MIPS were reviewed. IV Contrast dosage and agent: IV 100mL Isovue-370 COMPARISON: None. FINDINGS: Lungs: Unremarkable Mediastinum: The cardiomediastinal silhouette is not enlarged. No mediastinal, hilar or axillary adenopathy. The thoracic aorta is unremarkable. No obvious filling defect seen within the visualized pulmonary arteries. Pleura: Unremarkable Bones/Soft tissues: No suspicious osseous or soft tissue lesions Upper abdomen: No visualized abnormalities in the upper abdomen. CT/CTA Chest W/WO Contrast IMPRESSION: No acute abnormalities in the chest. Specifically, no evidence of acute pulmonary emboli to the segmental level. Electronically Signed: Selvin Thompson MD at 21:00 EDT ,
[2022-12-10 20:34] LABS: Absolute Lymphocyte Count 2.75 X10^3/uL (0.83-4.51); Absolute Neutrophil Count 5.5 X10^3/uL (2.0-7.7); Basophil# 0.09 X10^3/uL; Basophil% 0.9 % (0-1); Eosinophil# 0.18 X10^3/uL; Eosinophils% 1.9 % (0-5); Hematocrit 47.1 % (40-54); Hemoglobin 16.3 g/dL (13.0-16.5); Lymphocyte # 2.75 X10^3/ul (0.83-4.51); Lymphocyte % 28.9 % (19-41); Mean Corp Hgb Conc 34.6 g/dL (32-36); Mean Corpuscular Hgb 30.4 pg (27.0-32.0); Mean Corpuscular Volume 87.9 fL (80-94); Mean Platelet Vol. 8.6 fl (6.2-12.0); Monocyte# 0.93 X10^3/uL; Monocyte% 9.8 % (0-10); NRBC Flagged by Analyzer 0 % (0-5); Neutrophil # 5.54 X10^3/uL (2.7-7.7); Neutrophil % 58.2 % (47-70); Platelet Count 347 K/mm3 (150-450); RBC Distribution Width SD 38.6 fl (35.1-43.9); Red Blood Count 5.36 M/mm3 (4.6-6.2); White Blood Count 9.5 K/mm3 (4.4-11.0)
[2022-12-10 20:50] VITALS: BP 124/50; PULSE 86; RESP 15; O2SAT 97
[2022-12-10 21:10] VITALS: BP 104/45; PULSE 82; RESP 18; O2SAT 96
[2022-12-10 21:26] LABS: Anion Gap 8 (5-15); BUN 16 mg/dL (7-18); BUN/Creat Ratio 13.8 RATIO (10-20); Calcium,Total 9.1 mg/dL (8.5-10.1); Chloride 106 mmol/L (98-107); Creatinine, Serum 1.16 mg/dL (0.70-1.30); EST Glomerular Filtration Rate 72 mL/min (>60); Est Glom Filt Rate - Afr Amer 88 mL/min (>60); Glucose 133 mg/dL (74-106); Potassium 4.3 mmol/L (3.5-5.1); Sodium Level 138 mmol/L (136-145); Troponin-I HS (w/2H Reflex) < 3 pg/mL (3.0-78.0)
--- NOTE | 2022-12-10 21:38 | ED.VIS.CHEST ---
HPI History of Present Illness Chief Complaint: Chest Pain Informant: patient Onset/Context/Timing Onset: Today Activity at onset: gradual Timing: Waxes and wanes Quality: Positive for Aching and Pressure Location: Substernal Current Severity: Mild Maximum Severity: Moderate Narrative Narrative: Patient presents secondary to chest pain that started around 4 PM this evening. He reports a pressure in his lower chest that does radiate up towards the left neck. No radiation of pain into the arms. He did note some shortness of breath with climbing steps. He does have a family history of cardiac disease. He did take aspirin prior to arrival. [facility] Medical History Acid reflux Amputated finger High cholesterol Obstructive sleep apnea Home Medications omeprazole 40 mg capsule,delayed release 40 mg PO DAILY 06/27/21 [History Last Taken Unknown] oxygen-air delivery systems ##1 06/27/21 [History Last Taken Unknown] rosuvastatin 20 mg tablet (Crestor) 1 tablet PO DAILY 06/27/21 [History Last Taken Unknown] cephalexin 500 mg capsule 500 mg PO Q6 #40 caps 05/29/22 [Rx Last Taken Unknown] oxycodone 5 mg capsule 5 mg PO Q6H PRN pain 3 days #12 caps 05/29/22 [Rx Last Taken Unknown] Allergy/AdvReac Type Severity Reaction Status Date / Time No Known Allergies Allergy Verified 12/10/22 20:24 Family History Mother CAD (coronary artery disease) Social History Smoking Status: Never smoker alcohol intake: current alcohol intake frequency: a few times a month [facility] ED Constitutional Constitutional ED: Denies chills or fever(s) Eyes Eyes: Denies change in vision or discharge from eye(s) ENT ENT ED: Denies discharge from eye(s), rhinorrhea or sore throat Cardiovascular Cardiovascular: Reports chest pain; Denies palpitations Respiratory/Chest Respiratory/Chest: Reports dyspnea; Denies cough Gastrointestinal Gastrointestinal: Denies abdominal pain, nausea or vomiting Musculoskeletal Musculoskeletal: Denies back pain or extremity pain Integumentary Denies Abrasions or rash Neurologic Neurologic: Denies headache(s) or weakness Psychiatric Psychiatric: Denies anxiety or depression Allergic/Immunologic Allergic/Immunologic ED: Denies lip swelling or urticaria EXAM Physical Exam Const Vital Signs: 12/10/22 20:19 12/10/22 20:23 12/10/22 20:25 Temperature 98.1 F Temperature Source Temporal Pulse Rate 91 Respiratory Rate 29 H Respiratory Effort Normal Non-Labored Blood Pressure 139/64 H Blood Pressure Mean 89 Pulse Ox 98 97 Oxygen Delivery Method Room Air Room Air 12/10/22 21:10 12/10/22 20:50 Temperature Temperature Source Pulse Rate 82 86 Respiratory Rate 18 15 Respiratory Effort Blood Pressure 104/45 L 124/50 H Blood Pressure Mean 64 74 Pulse Ox 96 97 Oxygen Delivery Method Room Air Room Air Positive well nourished and well developed General Appearance ED: well developed HEENT Reports normocephalic and head/scalp atraumatic Eyes PERRL and EOMs intact bilaterally Neck supple Chest Wall inspection of chest normal and palpation of chest normal Resp normal respiratory effort and clear to auscultation bilaterally Cardio regular rate and regular rhythm GI normal to inspection, nondistended, normoactive bowel sounds Palpation: soft Extremity normal to inspection Neuro oriented x3 and no sensory deficits noted Sensorium / Orientation: alert Motor Exam: strength 5/5 throughout Psych mental status grossly normal Skin no rashes or lesions noted Heart Score History: Slightly/Non-Suspicious ECG: Normal Age: </= 45 years Risk Factors: 1 or 2 Risk Factors Troponin: </= Normal Limit Score: 1 MDM MDM MDM Narrative Medical decision making narrative: Patient placed on compliance monitor. EKG obtained to evaluate for cardiac arrhythmia/ischemia. Labwork obtained to evaluate for leukocytosis, anemia, and electrolyte derangement. CTA of the chest obtained. Lab Data Attestation: I reviewed the patient's lab results. Labs: Laboratory Results - last 24 hr 12/10/22 12/10/22 20:28 20:28 WBC 9.5 RBC 5.36 Hgb 16.3 Hct 47.1 MCV 87.9 MCH 30.4 MCHC 34.6 RDW Std Deviation 38.6 RDW Coeff of Rafal 12.0 Plt Count 347 MPV 8.6 Immature Gran % (Auto) 0.300 Neut % (Auto) 58.2 Lymph % (Auto) 28.9 Wetzel % (Auto) 9.8 Eos % (Auto) 1.9 Baso % (Auto) 0.9 Absolute Neuts (auto) 5.5 Absolute Lymphs (auto) 2.75 Nucleated RBC % 0 Sodium 138 Potassium 4.3 Chloride 106 Carbon Dioxide 24.0 Anion Gap 8 BUN 16 Creatinine 1.16 Estim Creat Clear Calc 77.80 Est GFR (MDRD) Af Amer 88 Est GFR (MDRD) Non-Af 72 BUN/Creatinine Ratio 13.8 Glucose 133 H Calcium 9.1 Troponin I High Sens < 3 L Radiography Diagnostic Testing: Clinical Impression(s) from Imaging Studies Chest CTA 12/10/22 20:25 IMPRESSION: No acute abnormalities in the chest. Specifically, no evidence of acute pulmonary emboli to the segmental level. Electronically Signed: Selivn Thompson MD at 21:00 EDT , EKG Initial EKG: Attestation: I personally reviewed and interpreted this EKG as follows: Interpretation: Sinus Rhythm (Sinus at 92 with no acute ischemia.) Prior: No Prior Differential Diagnosis Chest pain/SOB: pulmonary embolism Reason(s) PE less likely: Positive for not tachycardic, not hypoxic and Other (No evidence of PE on imaging studies.), ACS ACS: Positive for no evidence of ACS based on cardiac biomarkers and EKG without ischemia and aortic dissection Reason(s) Aortic dissection less likely:: Positive for normal vascular exam, normal neurological exam and other (No evidence of dissection on CTA of the chest) Treatment and Re-Evaluation :: EKG is sinus rhythm with no sign of acute ischemia. CBC and chemistry studies unremarkable. Troponin is less than 3. CTA of the chest reveals no evidence of PE or dissection. No acute abnormalities noted. Patient taken full aspirin prior to arrival. Test results are discussed with him. He is comfortable with discharge to home and will monitor his symptoms. Discharge Plan Triage Chief Complaint: Chest Pain ED Provider: Danitza Dozier Dx/Rx/DC Orders Clinical Impression: Chest pain Instructions: ED Chest Pain, Noncardiac Prescriptions: No Action rosuvastatin [Crestor] 20 mg tablet 1 tablet PO DAILY omeprazole 40 mg capsule,delayed release(DR/EC) 40 mg PO DAILY (DME) oxygen-air delivery systems Device See Rx Instructions .ROUTE .MEDSUPPLY Qty: 1 Rx Instructions: As directed oxycodone 5 mg capsule 5 mg PO Q6H PRN (Reason: pain) 3 Days Qty: 12 0RF cephalexin 500 mg capsule 500 mg PO Q6 Qty: 40 0RF Primary Care Provider: Grzegorz Gonzales Referrals: Grzegorz Gonzales MD [Primary Care Provider] - 1 Week Disposition Disposition: Home, Self Care
[2022-12-10 21:42] VITALS: BP 115/47; PULSE 74; RESP 19; O2SAT 96
[2022-12-10 22:31] LABS: Reflex Troponin-HS? (from REC) Y
== END 2022-12-10 21:49 | disposition home or self-care (01) ==
PROVIDERS: Emergency Provider Emergency Medicine; PCP Family Medicine; Visit Provider Emergency Medicine
DX: R07.9 Chest pain, unspecified (principal); E78.00 Pure hypercholesterolemia, unspecified; R06.02 Shortness of breath
CPT/HCPCS: 71275; 80048; 84484; 85025; 93005; 99283; Q9967; A4216

== ENCOUNTER → 2023-01-08 | Outpatient (CLI) | payer OTHER, SELFPAY ==
--- NOTE | 2023-01-08 12:54 | CT_ITS ---
STUDY: CTA CHEST REASON FOR EXAM: Male, 47 years old. CHEST PAIN RADIATION DOSAGE (If Supplied By Facility): CTDIvol = ( 35.55 ) mGy, DLP = ( 1403.13 ) mGycm TECHNIQUE: The examination was performed with the intravenous administration of IV 60mL Isovue-370. Post-processing of the angiographic images was performed, with multiplanar reformation and 3D reconstruction. Individualized dose optimization techniques were used for this CT. COMPARISON: Comparison is made with prior study of December 10, 2022. FINDINGS: Normal enhancement of the main pulmonary artery and right and left pulmonary arteries. Normal enhancement of the bilateral peripheral pulmonary arteries. There is no demonstrated pulmonary embolism. Normal thoracic aorta and visualized great vessels. There is no demonstrated aortic dissection. There are calcifications of the coronary arteries. Normal mediastinum. Normal hilar regions. Normal visualized trachea and bronchi. The lungs are well expanded. Normal pulmonary parenchyma. Normal pleura. Normal chest wall structures. There are degenerative changes of thoracic spine. Normal visualized upper abdomen. CT/Cardiac Angiography CTA IMPRESSION: Normal CTA chest examination, without a demonstrated pulmonary embolism or arterial dissection. Coronary artery calcification. Electronically Signed: Mahesh Reeves MD at 13:39 EDT ,
[2023-01-08 12:59] VITALS: BP 126/71; PULSE 70; RESP 16; O2SAT 99; BMI 35.2
--- NOTE | 2023-01-08 13:17 | CT_ITS ---
STUDY: CTA CHEST REASON FOR EXAM: Male, 47 years old. CHEST PAIN RADIATION DOSAGE (If Supplied By Facility): CTDIvol = ( 35.55 ) mGy, DLP = ( 1403.13 ) mGycm TECHNIQUE: The examination was performed with the intravenous administration of IV 60mL Isovue-370. Post-processing of the angiographic images was performed, with multiplanar reformation and 3D reconstruction. Individualized dose optimization techniques were used for this CT. COMPARISON: Comparison is made with prior study of December 10, 2022. FINDINGS: Normal enhancement of the main pulmonary artery and right and left pulmonary arteries. Normal enhancement of the bilateral peripheral pulmonary arteries. There is no demonstrated pulmonary embolism. Normal thoracic aorta and visualized great vessels. There is no demonstrated aortic dissection. There are calcifications of the coronary arteries. Normal mediastinum. Normal hilar regions. Normal visualized trachea and bronchi. The lungs are well expanded. Normal pulmonary parenchyma. Normal pleura. Normal chest wall structures. There are degenerative changes of thoracic spine. Normal visualized upper abdomen. CT/Limited Chest CT Cardiac Only IMPRESSION: Normal CTA chest examination, without a demonstrated pulmonary embolism or arterial dissection. Coronary artery calcification. Electronically Signed: Mahesh Reeves MD at 13:39 EDT ,
[2023-01-08 13:21] VITALS: BP 126/71; PULSE 70
[2023-01-08] MEDS: Nitroglycerin SL (ED/IMG/CATH) 0.4 MG TABLET SL (13:21)
[2023-01-08 13:26] VITALS: BP 102/58; PULSE 61; RESP 14; O2SAT 96
--- NOTE | 2023-01-08 17:37 | CCTA.WCONT ---
CCTA w/Cont Coronary Arteries Date of Study:: 01/08/23 Family history The patient was brought to the radiology suite in the postabsorptive nonsedated state. Informed consent was obtained. Intravenous contrast agent was administered and gated acquisition of images was obtained and reconstructed and displayed. No coronary calcium score was obtained as per order. LEFT MAIN CORONARY ARTERY: This arose from the left coronary cusp and bifurcating to left anterior descending artery and left circumflex artery. No significant atherosclerosis was noted. [] LEFT ANTERIOR DESCENDING CORONARY ARTERY: There was a proximal area of calcification which was nonocclusive in the vessel then continued and gave off 3 diagonal branches continuing towards the apex of the ventricle. No significant occlusive plaque was noted. Mild soft plaquing was noted at the proximal area. [] LEFT CIRCUMFLEX CORONARY ARTERY: This was a nondominant vessel with no significant atherosclerotic plaque noted [] RIGHT CORONARY ARTERY: This is a dominant vessel with no significant atherosclerotic plaquing noted bifurcating to posterior descending artery and posterolateral vessel. [] THORACIC AORTA: Normal size [] PULMONARY ARTERY: Normal size Conclusion.: Atherosclerotic plaquing noted of the proximal left anterior descending artery with minimal plaquing noted in the rest of the vessel and no significant plaquing noted in the left circumflex artery or the right coronary artery which was dominant.
== END | disposition home or self-care (01) ==
PROVIDERS: PCP Family Medicine; Referring Provider Family Medicine; Visit Provider Family Medicine
DX: R07.89 Other chest pain (principal)
CPT/HCPCS: 75574; 76380; Q9967

== ENCOUNTER → 2023-02-05 | Outpatient (CLI) | payer OTHER, SELFPAY ==
--- NOTE | 2023-02-05 06:50 | ECHOCS_ITS ---
Reason For Study: Chest Pain Procedure This was a 2D Doppler, Color Flow transthoracic echocardiogram. The study was technically difficult. Contrast injection was performed. Exam performed in department. Left Ventricle Normal LV size. Left ventricular systolic function is normal. The estimated ejection fraction is 60 %. Stage 1 diastolic dysfunction. No regional wall motion abnormalities noted. Right Ventricle Normal RV size. Normal systolic function. Atria Normal left atrium. Normal right atrium. Mitral Valve Normal mitral valve. Tricuspid Valve Normal tricuspid valve. Aortic Valve Trisinus/trileaflet aortic valve. Pulmonic Valve Normal pulmonic valve. Great Vessels Normal aortic root. The pulmonary artery is normal size. Normal inferior vena cava. Pericardium/Pleural No pericardial effusion. Medication 22 gauge I.V. with prn adaptor inserted into right arm. Diluted definity 2ml given slow IV push to enhance endocardial definition. MMode/2D Measurements & Calculations LVIDd: 5.0 cm IVSd: 1.1 cm Ao root diam: 3.6 cm LVIDs: 3.5 cm LVPWd: 1.1 cm LA dimension: 3.3 cm RVDd: 3.1 cm FS: 31.0 % LAV(MOD-bp): 40.8 ml LA A4 area: 13.0 cm2 RA A4 area: 11.8 cm2 LAV(MOD-bp) Indexed: 18.7 ml/m2 LAV(MOD-sp2): 51.5 ml LAV(MOD-sp4): 30.4 ml Time Measurements MV dec time: 0.24 sec Doppler Measurements & Calculations MV E max von: 86.2 cm/sec Lat Peak E' Von: 18.1 cm/sec Med Peak E' Von: 12.1 cm/sec MV A max von: 92.6 cm/sec E/E' lat: 4.8 E/E' med: 7.1 MV E/A: 0.93 MV V2 max: 97.9 cm/sec MV P1/2t max von: 94.9 cm/sec Ao V2 max: 134.0 cm/sec MV max P.8 mmHg MV P1/2t: 82.2 msec Ao max P.2 mmHg MV V2 mean: 56.2 cm/sec MV dec slope: 337.9 cm/sec2 Ao V2 mean: 89.2 cm/sec MV mean P.5 mmHg Ao mean P.7 mmHg MV V2 VTI: 30.8 cm MVA(P1/2t): 2.7 cm2 Ao V2 VTI: 27.0 cm AV (velocity ratio): 0.84 LV V1 max: 116.4 cm/sec PA V2 max: 101.0 cm/sec LV V1 max P.4 mmHg PA V2 mean: 70.6 cm/sec LV V1 mean P.7 mmHg LV V1 mean: 76.1 cm/sec LV V1 VTI: 22.7 cm ECHO/Echo Complete W/ Contrast Interpretation Summary Normal LV size. Left ventricular systolic function is normal. The estimated ejection fraction is 60 %. Stage 1 diastolic dysfunction. Contrast injection was performed. Ordering Physician: Benjamín Robert Referring Physician: Benjamín Robert Performed By: Grupo Farmer RCS
--- NOTE | 2023-02-05 15:43 | STRESSREP_ITS ---
Stress Test Report Exercise myocardial perfusion stress test. 47-year-old man with a history of abnormal CT angiogram. Stress protocol: Resting EKG demonstrates normal sinus rhythm with a rate of 64 bpm resting blood pressure is 118/78 mmHg. The patient exercised according to the regular Dann protocol for a total duration of 10 minutes and 31 seconds attaining a maximum heart rate of 151 bpm which was 86% of maximum predicted heart rate; the maximum workload was 13.4 metabolic equivalents. At rest there were no ST or T wave changes noted to suggest ischemia and at peak exercise upsloping ST changes only were noted which did not meet the criteria for ischemia. No clinical angina was noted the test was terminated due to the target heart rate being a chieved/fatigue. The peak blood pressure was 162/70 mmHg. [place]-pressure product was [address]. Myocardial perfusion protocol. 14.3 mCi of technetium 99m sestamibi was injected at rest. The patient exe rcised according to regular Dann protocol for total duration of 10 minutes and 30 seconds and at peak exercise 44.6 mCi of technetium 99m sestamibi was injected stress images were obtained stress and rest images were reconstructed in comparing the short axis vertical long and horizontal long axis. Gated images were also obtained. Perfusion SPECT analysis: Review of the stress images demonstrate normal uptake of tracer noted in all areas of the myocardium. The resting images similarly demonstrate normal uptake of tracer noted in all areas of the myocardium. No areas of reversibility are noted to suggest ischemia no previous infarct was noted. Gated SPECT analysis: The gated ejection fraction is 75%. Conclusion: Normal exercise myocardial perfusion stress test at a high workload Preserved ejection fraction.
== END | disposition home or self-care (01) ==
LOC: CVS 06:49
PROVIDERS: PCP Family Medicine; Referring Provider Internal Medicine Cardiovascular Disease; Visit Provider Internal Medicine Cardiovascular Disease
DX: R07.9 Chest pain, unspecified (principal)
CPT/HCPCS: 78452; 93017; 93306; A9500; Q9957; A4216; C8929

== ENCOUNTER → 2023-09-27 | Outpatient (CLI) | payer OTHER, SELFPAY ==
[2023-09-27 12:32] LABS: Absolute Lymphocyte Count 1.91 X10^3/uL (0.83-4.51); Absolute Neutrophil Count 4.6 X10^3/uL (2.0-7.7); Basophil# 0.08 X10^3/uL; Basophil% 1.1 % (0-1); Eosinophil# 0.14 X10^3/uL; Eosinophils% 1.9 % (0-5); Hemoglobin 16.5 g/dL (13.0-16.5); Lymphocyte # 1.91 X10^3/ul (0.83-4.51); Lymphocyte % 25.9 % (19-41); Mean Corp Hgb Conc 33.7 g/dL (32-36); Mean Corpuscular Volume 89.1 fL (80-94); Mean Platelet Vol. 9.4 fl (6.2-12.0); Monocyte# 0.59 X10^3/uL; NRBC Flagged by Analyzer 0 % (0-5); Neutrophil # 4.63 X10^3/uL (2.7-7.7); Neutrophil % 62.8 % (47-70); Platelet Count 305 K/mm3 (150-450); RBC Distribution Width CV 12.3 % (11.6-14.6); RBC Distribution Width SD 40.3 fl (35.1-43.9); White Blood Count 7.4 K/mm3 (4.4-11.0)
[2023-09-27 13:20] LABS: ALB/GLOB Ratio 1.2 RATIO (0.9-2.4); AST(SGOT) 28 U/L (15-37); Alanine Aminotransfer ALT/SGPT 50 U/L (16-61); Alkaline Phosphatase 78 U/L (45-117); Anion Gap 5 (5-15); BUN 14 mg/dL (7-18); BUN/Creat Ratio 12.3 RATIO (10-20); Calcium,Total 9.5 mg/dL (8.5-10.1); Chloride 111 mmol/L (98-107); Cholesterol 133 mg/dL (200); Creatinine, Serum 1.14 mg/dL (0.70-1.30); EST Glomerular Filtration Rate 74 mL/min (>60); Est Glom Filt Rate - Afr Amer 89 mL/min (>60); Globulin 3.4 g/dL (2.2-4.2); Glucose 92 mg/dL (74-106); High Density Lipoprotein 44 mg/dL; Potassium 3.9 mmol/L (3.5-5.1); Protein, Total 7.4 g/dL (6.4-8.2); Sodium Level 139 mmol/L (136-145); Thyroid Stim Hormone (TSH) 2.11 uIU/mL (0.358-3.74); Triglycerides 83 mg/dL; Very Low Density Lipoprotein 17 mg/dL (5-40)
== END | disposition home or self-care (01) ==
LOC: MFPLAB 09:48
PROVIDERS: PCP Family Medicine; Visit Provider Family Medicine
DX: E78.5 Hyperlipidemia, unspecified (principal)
CPT/HCPCS: 36415; 80053; 80061; 84443; 85025

== ENCOUNTER → 2025-06-26 | Outpatient (CLI) | payer OTHER, SELFPAY ==
[2025-06-26 15:41] LABS: Hematocrit 48.6 % (40-54); Hemoglobin 17.0 g/dL (13.0-16.5); Mean Corp Hgb Conc 35.0 g/dL (32-36); Mean Corpuscular Volume 87.6 fL (80-94); Mean Platelet Vol. 9.7 fl (6.2-12.0); Platelet Count 299 K/mm3 (150-450); RBC Distribution Width CV 12.1 % (11.6-14.6); RBC Distribution Width SD 39.0 fl (35.1-43.9); Red Blood Count 5.55 M/mm3 (4.6-6.2); White Blood Count 9.8 K/mm3 (4.4-11.0)
[2025-06-26 16:01] LABS: AST(SGOT) 33 U/L (<=37); Alanine Aminotransfer ALT/SGPT 41 U/L (<=46); Albumin, Serum 4.6 g/dL (3.5-5.0); Alkaline Phosphatase 86 U/L (40-129); Anion Gap 13 (5-15); BUN 12 mg/dL (4-19); BUN/Creat Ratio 10.9 RATIO (10-20); Calcium,Total 9.5 mg/dL (7.6-11.0); Carbon Dioxide 21.9 mmol/L (21.0-32.0); Chloride 104 mmol/L (98-108); Cholesterol 157 mg/dL (<=200); Globulin 3.3 g/dL (2.2-4.2); Glucose 92 mg/dL (70-99); Low Density Lipoprotein Calc. 90 mg/dL; PSA,Total - Annual Screen 2.84 ng/mL (0.02-4.00); Potassium 4.2 mmol/L (3.3-5.1); Triglycerides 132 mg/dL; Very Low Density Lipoprotein 26 mg/dL (5-40); cholesterol:hdl ratio screen 3.60
== END | disposition home or self-care (01) ==
LOC: MFPLAB 11:54
PROVIDERS: PCP Family Medicine; Visit Provider Family Medicine
DX: Z00.00 Encounter for general adult medical examination without abnormal findings (principal); Z12.5 Encounter for screening for malignant neoplasm of prostate; R53.83 Other fatigue; E78.49 Other hyperlipidemia
CPT/HCPCS: 36415; 80053; 80061; 84153; 84443; 85027; G0103